=== PATIENT | female | born 2000 | race Two or more races ===

== ENCOUNTER 2024-08-04 05:40 | Emergency (ER) | payer BC ==
[~2024-08-04] VITALS: Ht 177.8 cm; Wt 68.0 kg
[2024-08-04] MEDS ORDERED: LUTERA-28 TABL1 EACH (06:02)
[2024-08-04] MEDS ORDERED: KETOROLAC TROMETHAMINE 30 MG VIAL IV STA (06:47)
[2024-08-04] MEDS ORDERED: 0.9 % SODIUM CHLORIDE 1,000 ML IV STA (06:47)
[2024-08-04] MEDS ORDERED: MORPHINE SULFATE 4 MG/ML VIAL IV STA (06:47)
[2024-08-04] MEDS ORDERED: KETOROLAC TROMETHAMINE 30 MG VIAL ONE (07:10)
[2024-08-04 09:10] LABS: BASO % 0.3 % (0.1-1.2); HEMATOCRIT 36.7 % (34.1-44.9); HEMOGLOBIN 12.3 g/dL (11.2-15.7); LYMPH # 1.22 (1.18-3.74); LYMPH % 8.6 % (19.3-53.1); MEAN CORPUSCULAR HEMOGLOBIN 29.1 pg (25.6-32.2); MONO # 1.27 (0.24-0.82); NEUT # 11.54 (1.56-6.13); NEUT % 81.5 % (34.0-71.1); PLATELET COUNT 275 K/uL (163-369); RED BLOOD COUNT 4.23 M/uL (3.93-5.22); RED CELL DISTRIBUTION WIDTH 12.9 % (11.6-14.4)
[2024-08-04 09:40] LABS: URINE APPEARANCE Cloudy; URINE BILIRRUBIN Negative (NEGATIVE); URINE BLOOD Moderate; URINE COLOR Yellow; URINE GLUCOSE Negative (NEGATIVE); URINE KETONE Negative (NEGATIVE); URINE LEUKOCYTE Small; URINE NITRATE Positive; URINE UROBILINOGEN 0.2 E.U./dl
[2024-08-04 09:45] LABS: URINE CAST 2.79 uL (0.0-1.40); URINE EPITHELIAL CELLS 12.5 uL (0.0-38.8); URINE RBC 2.9 uL (0.0-20.8); URINE WBC 1507.6 uL (0.0-23.2)
[2024-08-04 09:49] LABS: INR 1.02; PARTIAL THROMBOPLASTIN TIME 26.1 SECONDS (22.0-34.0); PROTHROMBIN TIME 11.1 SECONDS (9.0-11.5)
[2024-08-04 09:58] LABS: ALBUMIN 3.2 gm/dL (3.4-5.0); BILIRUBIN TOTAL 0.6 mg/dL (0.3-1.2); CALCIUM 9.2 mg/dL (8.5-10.1); CREATININE SERUM 0.82 mg/dL (0.55-1.02); GFR 87.17; GLOBULINA 4.3 G/DL (2.4-3.5); POTASSIUM 4.06 mEq/L (3.5-5.1); TOTAL PROTEIN 7.5 gm/dL (6.4-8.2)
[2024-08-04 10:00] LABS: URINE BACTERIA > 9821.5 uL (0.0-1933); URINE PROTEIN 100 (NEGATIVE)
[2024-08-04] MEDS ORDERED: CEFTRIAXONE SODIUM 2,000 MG VIAL IV ONE (10:30)
[2024-08-04] MEDS ORDERED: CEFTRIAXONE SODIUM 2,000 MG VIAL ONE (10:36)
== END 2024-08-04 12:11 | disposition home or self-care (01) ==
LOC: ER 05:40
DX: N39.0 Urinary tract infection, site not specified (principal); R10.9 Unspecified abdominal pain